=== PATIENT | male | born 1990 | race Caucasian/White ===

== ENCOUNTER 2021-11-21 18:06 | Emergency (ER) | payer OTHER ==
[2021-11-21 18:15] VITALS: BP 117/81; PULSE 84; TEMP 98; BMI 31.5
[2021-11-21] MEDS ORDERED: DIPHTH,PERTUSS(ACELL),TET 0.5 ML DISP.SYRIN IM ONE ×2 (20:28→20:35)
[2021-11-21] MEDS ORDERED: BACITRACIN 0.9 GM PACKET ONE (21:17)
== END 2021-11-21 21:58 | disposition home or self-care (01) ==
LOC: JER 18:06
PROC: 3E0234Z Introduction of Serum, Toxoid and Vaccine into Muscle, Percutaneous Approach (ICD-10-PCS; principal; 2021-11-21)
DX: R46.89 Other symptoms and signs involving appearance and behavior (principal)
CPT/HCPCS: 90471; 90715; 99283-25